=== PATIENT | male | born 1965 ===

== ENCOUNTER → 2024-11-04 | Outpatient (REF) | payer OTHER, BC ==
[2024-11-05 08:26] LABS: LDL DIRECT 79 mg/dL (<100)
== END ==
LOC: M LAB REF 14:18
PROVIDERS: ATTEND Nurse Practitioner Family
DX: E78.00 Pure hypercholesterolemia, unspecified (principal)

== ENCOUNTER → 2025-04-29 | Outpatient (REF) | payer BC, OTHER | LOC: M LAB REF 13:10 | PROVIDERS: ATTEND Internal Medicine | DX: M10.9 Gout, unspecified (principal) ==